=== PATIENT | female | born 2005 | race African-American/Black ===

== ENCOUNTER 2025-03-16 12:16 | Emergency (ER) | payer MEDICAID, SELFPAY | END 2025-03-16 13:17 | disposition home or self-care (01) | LOC: ERS 12:16 | DX: O99.891 Other specified diseases and conditions complicating pregnancy (principal); R21 Rash and other nonspecific skin eruption; J45.909 Unspecified asthma, uncomplicated; Z55.6 Problems related to health literacy | CPT/HCPCS: 99282 ==